=== PATIENT | female | born 1985 | race Hispanic/Latino ===

== ENCOUNTER 2017-05-18 07:59 | Inpatient (IN) | payer OTHER ==
[2017-05-18 08:15] VITALS: BMI 24.0
[2017-05-18 08:49] LABS: HEMATOCRIT 39.4 % (34.0-47.0); MEAN CELL VOLUME 88.1 fl (81.0-99.0); MEAN CORPUSCULAR HEMOGLOBIN 29.4 pg (27.0-31.0); MEAN CORPUSCULAR HGB CONC 33.4 g/dL (33.0-37.0); RED CELL DISTRIBUTION WIDTH 13.2 % (11.5-14.5); WHITE BLOOD COUNT 4.2 K/uL (4.8-10.8)
[2017-05-18] MEDS ORDERED: Lactated Ringer's 1,000 ML IV ONE ×4 (09:30→14:39)
[2017-05-18] MEDS ORDERED: Propofol 10 mg/ml Inj (20 ML) ONE (10:23)
[2017-05-18] MEDS ORDERED: Succinylcholine 200 mg/10 ml Inj IV ONE (10:23)
[2017-05-18] MEDS ORDERED: Rocuronium 10 mg/ml (5 ml) ONE (10:23)
[2017-05-18] MEDS ORDERED: ePHEDrine 50 mg/ml Inj ONE (10:23)
[2017-05-18] MEDS ORDERED: Lidocaine 4% (Laryng-O-Jet) Kit MM ONE (10:23)
[2017-05-18] MEDS ORDERED: Midazolam 2 MG/2 ML VIAL ONE (10:23)
[2017-05-18] MEDS ORDERED: ceFAZolin IV 1 gm in Dextrose 1 GM/50 ML BAG IVPB ONE (10:43)
[2017-05-18] MEDS ORDERED: Bupivacaine 0.5% Inj(30mL) ONE (10:43)
[2017-05-18] MEDS ORDERED: Dexamethasone 4 mg/1 ml ONE (11:37)
[2017-05-18] MEDS ORDERED: Neostigmine Methylsulfate 2 MG/2 ML ML IV ONE (14:16)
[2017-05-18] MEDS ORDERED: Neostigmine Methylsulfate 3mg/3ml Syringe IV ONE (14:16)
[2017-05-18] MEDS ORDERED: Lactated Ringer's 1,000 ML IV SCH ×2 (14:45→16:00)
[2017-05-18] MEDS: HYDROmorphone 0.5 mg/0.5 ml ISec IVP PRN ×2 (14:55→15:10)
[2017-05-18 20:23] VITALS: O2SAT 100
[2017-05-18] MEDS: Oxycodone/Acetaminophen 5/325 mg Tab PO PRN (22:00)
--- NOTE | 2017-05-18 23:24 | PCM.OP ---
Operative Report - Operative Report Date of Surgery/Procedure: 04/17/17 Time of Surgery/Procedure: 08:00 Surgeon: Dr. Avery Hirsch [employer] Designer: Dr. Prosper Saldivar Anesthesia/Sedation: general/Dr. Menezes Pre-Operative Diagnosis: endometriosis and abdominal pain Post-Operative Diagnosis: endometriosis of the diaphragm, appneix and rectum Indication for Surgery: as above Operative Findings: as above Procedure/Operation Description: 1-diaphragm resection with simole repair. 2- excision multiple rectal endometriosis (times two). 3-appendectomy. Brief History: This is a 32 year old woman admitted by Dr. Saldivar with endometriosis and abdominal pain. She had already begun the robotic procedure when Dr. Saldivar asked for a surgery consult since the patient had multiple lesions on the right diaphragm, appendix and rectum. Description of the procedure: Dr. Saldivar had already initiated the procedure (separate dictation Dr. Saldivar) and after consutlation for the above lesions I took control of the robotic console. The right diaphragm was addressed and multiple lesions were noted to be on the major portion of the right side. With the aids of the J-Plasma Bovie the lesions were dessicated completely off the diaphragm peritoneum.. These were sent to pathology separately A small rent was noted and repaired with interrupted 2-0 vicryl sutures. Our attention then turned to the appendix and mulriple periappendiceal lesions were noted with scissors and electrocautery these lesions were dissecrted to the level of the appndix mesentery. The appediceal artery was dessicated in the usual fashion to the base. 2-0 PDS endoloops were placed just above the cecum and secured to the appendix. It was trasected and sent to aptholgy as a separate sepcimen. With the robot two areas of endometriosis was encountered on the rectal wall and these were removed separately with blunt and shapr dissection with the aid of electrocuatery. These lesions were appropriately marked and sent both as separarte specimens. The operation wasd then turned over to Dr. Saldivar (spearate dicttion Dr. Saldivar) . Estimated Blood Loss: 10 cc Complications: none Specimen: 1-diaphragm endometriosis. 2-appendix. 3-rectum (times two) Discharge & Condition: stable
[2017-05-19] MEDS: Oxycodone/Acetaminophen 5/325 mg Tab PO PRN ×2 (03:31→11:38)
[2017-05-19 06:31] LABS: BASO % 0.2 % (0.0-2.0); EOS % 0.3 % (0.0-4.0); HEMATOCRIT 32.6 % (34.0-47.0); LYMPH # 1.6 K/uL (1.0-4.3); LYMPH % 17.1 % (20.0-40.0); MEAN CELL VOLUME 88.2 fl (81.0-99.0); MEAN CORPUSCULAR HEMOGLOBIN 29.4 pg (27.0-31.0); MEAN CORPUSCULAR HGB CONC 33.3 g/dL (33.0-37.0); MEAN PLATELET VOLUME 8.5 fl (7.2-11.7); MONO # 0.8 K/uL (0.0-0.8); MONO % 8.4 % (0.0-10.0); NEUT # 6.9 K/uL (1.8-7.0); RED CELL DISTRIBUTION WIDTH 12.9 % (11.5-14.5); WHITE BLOOD COUNT 9.4 K/uL (4.8-10.8)
[2017-05-19 09:06] VITALS: RESP 18
[2017-05-19 16:24] VITALS: BP 101/69; PULSE 78; TEMP 98.2
--- NOTE | 2017-06-20 21:06 | OP ---
PROCEDURE DATE: 05/18/2017 PREOPERATIVE DIAGNOSES: Abdominopelvic pain, endometriosis and right ovarian endometrioma. POSTOPERATIVE DIAGNOSES: Abdominopelvic pain, endometriosis and right ovarian endometrioma plus endometriosis of the diaphragm and the rectum. PROCEDURE: cystoscopy with bilateral uretheral catheterization and injection of IC Green dye, diagnostic hysteroscopy, Robotic Da mehul Excision of Endometriosis , Bilateral ureterolysis. Dr Hirsch to separately dictate excision of rectal endometriosis, appendectomy and excision of diaphragmatic endometriosis. SURGEON: Brigido Saldivar MD. STATOR TESTER: Assisted by Avery Hirsch MD. TYPE OF ANESTHESIA: General. ANESTHESIA ADMINISTERED BY: Claribel Menezes MD. INDICATION FOR SURGERY: The patient is a 32-year-old female with a known history of endometriosis. She had a preoperative evaluation that revealed presence of extensive endometriosis, confirmed by ultrasound as well as clinical exam. Prior to the surgery, she was consented with regards to the risks and benefits of the procedure. She signed the consent and was taken to the OR. DESCRIPTION OF PROCEDURE: After adequate anesthesia, the patient was placed in a dorsal lithotomy position. She was prepped and draped. The surgeon was gowned and gloved. After the time-out was taken according to the policies of the hospital, the attention was in the vaginal area where under direct visualization, a cystoscope was inserted into the bladder. A pancystoscopy was performed. The bladder being free of lesions and masses. Both ureteral orifices were in the appropriate anatomical positions. An open-ended catheter was inserted up to the distal left ureter and 2.5 mL of IC-Green were injected into the left ureter. Attention was then on the right ureteral orifice where an open-ended catheter was inserted into the right ureteral orifice distally and 2.5 mL of IC-Green were injected into the right ureter. At this point, the catheters were removed and a 16-Occitan Platt was placed into the bladder. Attention was then in the vaginal area where anterior lip of the cervix was grasped. The uterus was gently dilated and a hysteroscopy was performed revealing a normal cavity free of lesions. At this point, attention was on the abdomen where after regowning and regloving, an open laparoscopy was performed utilizing the standard open technique by cutting through skin and advancing in a blunt fashion all the way down incising the fascia and then entering the peritoneum in a blunt fashion. A blunt cannula was then inserted and the abdomen was insufflated. Additionally 3 more ports were placed under direct visualization. The da mehul Robot was then brought on to the field, docked and targeted. At this point, the upper abdomen was visualized and there appeared to be a number of endometriotic lesions in the right perihepatic diaphragmatic area.Dr. Hirsch from general surgery was called in and he proceded with excision of the diaphragmatic endometriosis and and appendectomy that he will dictate separately. Attention was then on the pelvic area where there appeared to be multiple endometriosis implants. Attention was then on the anterior part of the compartment where there was area of endometriosis in the serosa of the bladder. The peritoneum was entered and progressively dissected off the bladder and excision of a large area of peritoneum containing endometriosis was performed without injuring the muscularis or the mucosa of the bladder. Once this dissection was performed, an additional area of endometriosis was dissected from the anterior abdominal wall in the lower part. The right ovary had an endometrioma and there was significant deep infiltrating endometriosis in both the right and left pelvic sidewalls as well as in the colorectal area. At this point, attention was first on the right hand side where after elevating the right ovary, the abundant chocolate cyst fluid was leaking and it was completely aspirated and the ovary was elevated. At this point, the right pelvic sidewall appeared to be significantly affected with both a black as well as like white and red inflammatory endometriosis. After identifying the ureter, thanks to fluorescence, the peritoneum was entered and the retroperitoneal space was entered. A progressive dissection in a step by step fashion was performed dissecting the right pelvic sidewall and the peritoneum containing deep infiltrating endometriosis. The ureter was then progressively dissected out and lateralized. A large swath of peritoneum containing endometriosis was excised. Attention was then in the left pelvic sidewall where again similarly to on the right hand side, an area of endometriosis was identified and the peritoneum was entered and a progressive dissection was performed dissecting off the peritoneum containing endometriosis tissue. The endometrioma on the right ovary was excised with great regard to preserving healthy ovarian tissue. There was an area in the posterior cervix that appeared to be affected with endometriosis and this was also dissected off in a step by step fashion obtaining a wide amount of peritoneum. At this point, Dr. Avery Hirsch from General Surgery was called in to address an area of endometriosis in the colorectal area, the robotic console was handed of to im and he proceded with the excision. he will dictate this part separately. Additionally, areas of peritoneum affected by the inflammatory-type lesions proximal to the area that was excised, were treated utilizing a superficial laser mostly in the posterior aspect of the uterus which contained areas of significant inflammation. At this point, it was checked for hemostasis that appeared to be excellent. The robot was undocked. The instruments were removed and the abdomen was desufflated. Incisions were closed in layers with PDS for the fascia and 4-0 Monocryl for the skin. At the end of the procedure, all tapes and instruments counts were correct. The patient tolerated the procedure well, was taken to recovery in excellent condition. Brigido Saldivar MD MTDD
== END 2017-05-19 17:30 | disposition home or self-care (01) | DRG 327 ==
LOC: H.OPSURG 07:59 → H.PEDS 15:55
PROVIDERS: ADMIT Obstetrics & Gynecology Reproductive Endocrinology; ATTEND Obstetrics & Gynecology Reproductive Endocrinology
PROC: 0D5W0ZZ Destruction of Peritoneum, Open Approach (ICD-10-PCS; 2017-05-18)
PROC: 0DBP0ZZ Excision of Rectum, Open Approach (ICD-10-PCS; 2017-05-18)
PROC: 0BBT0ZZ Excision of Diaphragm, Open Approach (ICD-10-PCS; 2017-05-18)
PROC: 0DTJ0ZZ Resection of Appendix, Open Approach (ICD-10-PCS; 2017-05-18)
PROC: 0TJB8ZZ Inspection of Bladder, Via Natural or Artificial Opening Endoscopic (ICD-10-PCS; 2017-05-18)
PROC: 8E0W0CZ Robotic Assisted Procedure of Trunk Region, Open Approach (ICD-10-PCS; 2017-05-18)
PROC: 0BQT0ZZ Repair Diaphragm, Open Approach (ICD-10-PCS; principal; 2017-05-18 11:00)
PROC: 0UB00ZZ Excision of Right Ovary, Open Approach (ICD-10-PCS; 2017-05-18 11:00)
PROC: 0WBF0ZZ Excision of Abdominal Wall, Open Approach (ICD-10-PCS; 2017-05-18 11:00)
PROC: 0TBB0ZZ Excision of Bladder, Open Approach (ICD-10-PCS; 2017-05-18 11:00)
DX: N80.5 Endometriosis of intestine (principal); J95.71 Accidental puncture and laceration of a respiratory system organ or structure during a respiratory system procedure; N80.1 Endometriosis of ovary; N80.8 Other endometriosis; Y83.8 Other surgical procedures as the cause of abnormal reaction of the patient, or of later complication, without mention of misadventure at the time of the procedure

== ENCOUNTER 2017-06-01 12:50 | Emergency (ER) | payer OTHER ==
[2017-06-01 12:50] VITALS: BMI 24.0
[2017-06-01 12:59] VITALS: O2SAT 100
[2017-06-01] MEDS ORDERED: Sodium Chloride 0.9% 1,000 ML IV STA (13:32)
--- NOTE | 2017-06-01 13:41 | ED PDOC ---
HPI: Abdomen Time Seen by Provider: 06/01/17 13:28 Chief Complaint (Nursing): Chest Pain Chief Complaint (Provider): Abdominal Pain History Per: Patient History/Exam Limitations: no limitations Onset/Duration Of Symptoms: Days (x 2 weeks) Current Symptoms Are (Timing): Still Present Additional Complaint(s): Sonia is a 32 y/o female who was referred to the ED by PMD for evaluation of abdominal pain. Patient was diagnosed with endometriosis, and underwent ovarian cyst removal surgery [address] Saldivar, and since then has been having abdominal pain, tactile fever, and nausea, but no vomiting. No fever this week but Tmax last week was 102. Denies any associated shortness of breath, chest pain, weakness, numbness, or dizziness. PMD: None Past Medical History Reviewed: Historical Data, Nursing Documentation, Vital Signs Vital Signs: Last Vital Signs Temp 97.7 F 06/01/17 12:58 Pulse 74 06/01/17 12:58 Resp 17 06/01/17 12:58 BP 106/68 06/01/17 12:58 Pulse Ox 100 06/01/17 13:46 - Medical History PMH: Asthma, Migraine - Surgical History Other surgeries: Surgery for endometriosis 2 weeks ago - Family History Family History: States: Unknown Family Hx - Home Medications Home Medications: Ambulatory Orders Medication Instructions Recorded Onabotulinumtoxina Botulinum 155 unit IJ ASDIR 05/18/17 [Botox] Topiramate [Topamax] 100 mg PO BID 05/18/17 Cholecalciferol [Vitamin D 1000 IU] 1,000 unit PO BID 06/01/17 Cyanocobalamin [Vitamin B12 1000 1 tab PO DAILY 06/01/17 mcg Tab] Ibuprofen [Motrin Tab] 800 mg PO BID PRN 06/01/17 Lactobacillus Combination No.8 1 cap PO DAILY 06/01/17 [Adult Probiotic] Rizatriptan Benzoate [Rizatriptan] 10 mg PO DAILY PRN 06/01/17 Vitamin B Complex [Super B-50 1 cap PO DAILY 06/01/17 Complex] oxyCODONE/Acetaminophen [Percocet 1 tab PO Q6H PRN 06/01/17 5/325 mg Tab] - Allergies Allergies/Adverse Reactions: Allergies Allergy/AdvReac Type Severity Reaction Status Date / Time No Known Allergies Allergy Verified 05/18/17 08:15 Review of Systems ROS Statement: Except As Marked, All Systems Reviewed And Found Negative Constitutional: Negative for: Fever, Chills Cardiovascular: Negative for: Chest Pain Respiratory: Negative for: Shortness of Breath Gastrointestinal: Positive for: Nausea, Abdominal Pain. Negative for: Vomiting Musculoskeletal: Negative for: Back Pain Neurological: Negative for: Weakness, Numbness, Dizziness Physical Exam - Reviewed Nursing Documentation Reviewed: Yes Vital Signs Reviewed: Yes - Physical Exam Appears: Positive for: Non-toxic, No Acute Distress Head Exam: Positive for: ATRAUMATIC, NORMAL INSPECTION, NORMOCEPHALIC Skin: Positive for: Normal Color, Warm, Dry Eye Exam: Positive for: EOMI, Normal appearance, PERRL ENT: Positive for: Normal ENT Inspection Neck: Positive for: Normal, Painless ROM, Supple Cardiovascular/Chest: Positive for: Regular Rate, Rhythm. Negative for: Murmur Respiratory: Positive for: Normal Breath Sounds. Negative for: Respiratory Distress Gastrointestinal/Abdominal: Positive for: Soft, Tenderness (diffusely tender abdomen), Other (Healing surgical scars w/ bandage in place) Back: Positive for: Normal Inspection. Negative for: L CVA Tenderness, R CVA Tenderness, Vertebral Tenderness Extremity: Positive for: Normal ROM. Negative for: Pedal Edema, Deformity Neurologic/Psych: Positive for: Alert, Oriented - Laboratory Results Result Diagrams: 06/01/17 14:09 06/01/17 14:09 - ECG O2 Sat by Pulse Oximetry: 100 (RA) Pulse Ox Interpretation: Normal - Progress ED Course And Treament: 1500: Pt. stable. Dr. Banuelos to fu on ct. Medical Decision Making Medical Decision Making: Evaluated patient with Dr. Bruce, Dr. Hirsch, and Dr. Saldivar at bedside. Time: 13:35 Initial Plan: --Urine --Urine dipstick --Urinalysis --Urine culture --Blood culture --VBG --BMP --CBC --Chest x-ray --CT Abd/Pelvis with IV contrast --NS IV 1000 ml at 1000 mls/hr --Toradol 15 mg IV --Pending reevaluation Scribe Attestation: Documented by Irma Stevenson, acting as a scribe for Dixon Razo MD Provider Scribe Attestation: All medical record entries made by the Scribe were at my direction and personally dictated by me. I have reviewed the chart and agree that the record accurately reflects my personal performance of the history, physical exam, medical decision making, and the department course for this patient. I have also personally directed, reviewed, and agree with the discharge instructions and disposition. Disposition - Clinical Impression Clinical Impression: Abdominal pain - Patient ED Disposition Is Patient to be Admitted: Transfer of Care - Disposition Disposition: Transfer of Care Disposition Time: 15:01 Condition: STABLE Patient Signed Over To: Carlos Banuelos
[2017-06-01 14:11] LABS: VENOUS BLOOD GAS BASE EXCESS -1.2 mmol/L (0.0-2.0); VENOUS BLOOD GAS PCO2 46 mmHg (40-60); VENOUS BLOOD PH 7.34 (7.32-7.43)
[2017-06-01 14:16] LABS: RBC URINE 4 /hpf (0-3); URINE BACTERIA RARE (<OCC); URINE BILIRUBIN NEGATIVE (NEGATIVE); URINE BLOOD NEGATIVE (NEGATIVE); URINE COLOR BLUE (YELLOW); URINE GLUCOSE (UA) NEG (Normal); URINE KETONE NEGATIVE (NEGATIVE); URINE LEUKOCYTE ESTERASE NEG Leu/uL (Negative); URINE PROTEIN 30 mg/dL (NEGATIVE); URINE UROBILINOGEN 0.2-1.0 mg/dL (0.2-1.0); WBC URINE 1 /hpf (0-5)
[2017-06-01 14:17] LABS: HEMATOCRIT 31.7 % (34.0-47.0); MEAN CELL VOLUME 87.6 fl (81.0-99.0); MEAN CORPUSCULAR HEMOGLOBIN 29.2 pg (27.0-31.0); MEAN CORPUSCULAR HGB CONC 33.3 g/dL (33.0-37.0); RED CELL DISTRIBUTION WIDTH 13.1 % (11.5-14.5); WHITE BLOOD COUNT 8.6 K/uL (4.8-10.8)
[2017-06-01 14:34] LABS: BLOOD UREA NITROGEN 12 mg/dl (7-17); CALCIUM 9.2 mg/dL (8.4-10.2); CARBON DIOXIDE 23 mmol/L (22-30); CHLORIDE 109 mmol/L (98-107); GFR AFRICAN-AMERICAN > 60; GLUCOSE,RANDOM 90 mg/dL (65-105); POTASSIUM 4.4 MMOL/L (3.6-5.0); SODIUM 142 mmol/l (132-148)
--- NOTE | 2017-06-01 15:08 | ED PDOC ---
- Laboratory Results Result Diagrams: 06/01/17 14:09 06/01/17 14:09 - ECG O2 Sat by Pulse Oximetry: 100 (RA) Pulse Ox Interpretation: Normal - Progress Re-evaluation Time: 17:05 Condition: Re-examined, Improved Medical Decision Making Medical Decision Making: Time: 15:00 Patient is signed out to me by Dr. Dixon Razo, pending CT and reevaluation. Time: 15:22 Chest X-Ray: FINDINGS: LUNGS: No active pulmonary disease. PLEURA: No significant pleural effusion identified. No pneumothorax apparent. CARDIOVASCULAR: Normal. OSSEOUS STRUCTURES: No significant abnormalities. VISUALIZED UPPER ABDOMEN: Normal. OTHER FINDINGS: None. IMPRESSION: No active disease. No visible pneumothorax. Time: 3 --CT ABD/pelvis FINDINGS: LOWER THORAX: Limited bilateral basilar dependent atelectasis is appreciated. LIVER: Unremarkable. No gross lesion or ductal dilatation. GALLBLADDER AND BILE DUCTS: Unremarkable. PANCREAS: Unremarkable. No gross lesion or ductal dilatation. SPLEEN: Unremarkable. ADRENALS: Unremarkable. No mass. KIDNEYS AND URETERS: Unremarkable. No hydronephrosis. No solid mass. VASCULATURE: Unremarkable. No aortic aneurysm. BOWEL: There is no bowel obstruction or definite free intraperitoneal fluid collection identified. No free intraperitoneal gas identified either. Fluid is seen filling segments of the ascending colon as seen throughout the small bowel loops of the abdomen and pelvis in particular with a left adnexal cyst enhancing the periphery measuring 3.4 x 2.9 cm. Retained fecal material with the distal rectum obscures the wall somewhat however mural thickening at the mid to inferior rectum is in question. No definitive pelvic abscesses identifiable at this time however the lack oral contrast limits the evaluation significantly. Clinically, there is reportedly a potential rectovaginal fistula. This is not positively identified on the current examination. APPENDIX: Not identified. PERITONEUM: Unremarkable. No free fluid. No free air. LYMPH NODES: Unremarkable. No enlarged lymph nodes. BLADDER: Unremarkable. REPRODUCTIVE: Left adnexal cyst as discussed above in bowel section. No suspicious right adnexal findings. BONES: No acute fracture. OTHER FINDINGS: None. IMPRESSION: Exam compromised by the lack of oral contrast administration however no definitive abscess is appreciate in the abdomen or pelvis. There is no ascites either. A 3.4 cm left adnexal cyst is identified enhancing in the periphery and there is questionable mid to inferior rectal mural thickening. Clinically, there may be a rectovaginal fistula. Follow-up abdomen and pelvis CT with oral and intravenous contrast may be helpful an attempt to identify this if present. Time: 1705 --Patient has been seen by Dr Saldivar in ED. Dr Saldivar reviewed CT abdomen. Radiology report resulted. Dr Saldivar recommends discharge with cipro PO and metrogel. --Patient will be discharged home. Counseling was provided and all questions were answered regarding diagnosis and need for follow up with PCP. There is agreement to discharge plan. Return if symptoms persist or worsen. Clinical Impression: Abdominal pain; Retrovaginal fistula Scribe Attestation: Documented by Irma Stevenson, acting as a scribe for Carlos Banuelos MD Provider Scribe Attestation: All medical record entries made by the Scribe were at my direction and personally dictated by me. I have reviewed the chart and agree that the record accurately reflects my personal performance of the history, physical exam, medical decision making, and the department course for this patient. I have also personally directed, reviewed, and agree with the discharge instructions and disposition. Disposition Doctor Will See Patient In The: Office Counseled Patient/Family Regarding: Studies Performed, Diagnosis, Need For Followup - Clinical Impression Clinical Impression: Abdominal pain, Rectovaginal fistula - POA Present On Arrival: None - Disposition Referrals: Brigido Saldivar [Medical Doctor] - Disposition: Routine/Home Disposition Time: 17:06 Condition: STABLE Additional Instructions: See attached instructions for rectovaginal fistula. Take your medications as instructed. Follow up with Dr Saldivar in 1 week. Prescriptions: Ciprofloxacin HCl [Cipro] 500 mg PO BID #20 tablet metroNIDAZOLE 0.75% [Metrogel Cream] 1 applic VAG HS #1 tube
--- NOTE | 2017-06-01 15:24 | RAD ---
HISTORY: Pneumothorax suspected. COMPARISON: No prior. TECHNIQUE: Chest PA and lateral FINDINGS: LUNGS: No active pulmonary disease. PLEURA: No significant pleural effusion identified. No pneumothorax apparent. CARDIOVASCULAR: Normal. OSSEOUS STRUCTURES: No significant abnormalities. VISUALIZED UPPER ABDOMEN: Normal. OTHER FINDINGS: None. IMPRESSION: No active disease. No visible pneumothorax.
[2017-06-01] MEDS ORDERED: Iohexol 300 100 ML IJ ONE (15:41)
[2017-06-01] MEDS ORDERED: Sodium Chloride 0.9% 50 ML IV ONE (15:41)
--- NOTE | 2017-06-01 16:55 | CT ---
PROCEDURE: CT Abdomen and Pelvis with contrast HISTORY: r/o pelvic abscess COMPARISON: None. TECHNIQUE: Following the intravenous administration of iodinated contrast material, a CT examination of the abdomen and pelvis performed from the domes of the diaphragms to the symphysis pubis with reformatted datasets provided not only axial but also sagittal and coronal planes. Oral contrast was not administered as per referring physician request. Contrast dose: Omnipaque 300, 90 cc. Radiation dose: Total exam DLP = 451.68 MGy-cm. This CT exam was performed using one or more of the following dose reduction techniques: Automated exposure control, adjustment of the mA and/or kV according to patient size, and/or use of iterative reconstruction technique. FINDINGS: LOWER THORAX: Limited bilateral basilar dependent atelectasis is appreciated. LIVER: Unremarkable. No gross lesion or ductal dilatation. GALLBLADDER AND BILE DUCTS: Unremarkable. PANCREAS: Unremarkable. No gross lesion or ductal dilatation. SPLEEN: Unremarkable. ADRENALS: Unremarkable. No mass. KIDNEYS AND URETERS: Unremarkable. No hydronephrosis. No solid mass. VASCULATURE: Unremarkable. No aortic aneurysm. BOWEL: There is no bowel obstruction or definite free intraperitoneal fluid collection identified. No free intraperitoneal gas identified either. Fluid is seen filling segments of the ascending colon as seen throughout the small bowel loops of the abdomen and pelvis in particular with a left adnexal cyst enhancing the periphery measuring 3.4 x 2.9 cm. Retained fecal material with the distal rectum obscures the wall somewhat however mural thickening at the mid to inferior rectum is in question. No definitive pelvic abscesses identifiable at this time however the lack oral contrast limits the evaluation significantly. Clinically, there is reportedly a potential rectovaginal fistula. This is not positively identified on the current examination. APPENDIX: Not identified. PERITONEUM: Unremarkable. No free fluid. No free air. LYMPH NODES: Unremarkable. No enlarged lymph nodes. BLADDER: Unremarkable. REPRODUCTIVE: Left adnexal cyst as discussed above in bowel section. No suspicious right adnexal findings. BONES: No acute fracture. OTHER FINDINGS: None. IMPRESSION: Exam compromised by the lack of oral contrast administration however no definitive abscess is appreciate in the abdomen or pelvis. There is no ascites either. A 3.4 cm left adnexal cyst is identified enhancing in the periphery and there is questionable mid to inferior rectal mural thickening. Clinically, there may be a rectovaginal fistula. Follow-up abdomen and pelvis CT with oral and intravenous contrast may be helpful an attempt to identify this if present.
[2017-06-01 17:31] VITALS: BP 104/64; PULSE 67; RESP 18; TEMP 97.9
--- NOTE | 2017-06-02 08:58 | CON ---
DATE: 06/01/2017 HISTORY OF PRESENT ILLNESS: The patient is a 32-year-old female who is 2 weeks postop, who presented to my office yesterday with complaint of gas passing out of her vagina and generalized malaise. I examined her and I did a vaginal exam. I was not able to see a fistula, but nevertheless given her symptoms, a high index of suspicion has to be present. I referred the patient to the emergency room in order to evaluate this better. The patient presented to the ER around 1:00 p.m. today and she was afebrile and in no distress. Her abdominal exam was benign. In fact, I examined the patient along with Dr. Avery Hirsch and her abdominal exam was benign. We opted not to do a vaginal exam in order not to create trauma to the potential fistula area. Laboratories were obtained revealing no evidence of a white count, the white count being 8.6. ESR was slightly elevated at 72. Chemistries were overall normal. The patient was eating and having normal bowel movements with no signs of obstructions. A chest x-ray was obtained revealing to be normal and a CT scan of the pelvis with abdomen was also obtained revealing no evidence of abscess or obstruction. At this point, given the clinical situation being stable, we opted to discharge the patient home on oral antibiotics. She will be on Cipro 500 mg twice a day for 10 days and to follow up with me in 2 or 3 days for assessment of her clinical status. Brigido Saldivar MD
== END 2017-06-01 17:29 | disposition home or self-care (01) ==
LOC: H.ER 12:50
DX: N82.3 Fistula of vagina to large intestine (principal); N80.9 Endometriosis, unspecified; R10.9 Unspecified abdominal pain
CPT/HCPCS: 71020; 74177; 80048; 81003; 81025; 82803; 85027; 85651; 87040; 87086; 96361; 96374; 99284; J1885; J7040; Q9967